=== PATIENT | male | born 1940 | race Caucasian/White ===

== ENCOUNTER 2019-02-25 07:27 | Day surgery (SDC) | payer MEDICARE, OTHER ==
[2019-02-25] VITALS (7 sets, daily range): BP systolic 119–139; BP diastolic 57–68
[~2019-02-25] VITALS: Ht 198.1 cm; Wt 104.7 kg
[2019-02-25] MEDS ORDERED: AMLO5TAB4 PO (08:40)
[2019-02-25] MEDS ORDERED: OMEP20TA23 PO (08:40)
[2019-02-25] MEDS ORDERED: ROSU20TA2 PO (08:40)
[2019-02-25] MEDS ORDERED: NADO40TA PO (08:40)
[2019-02-25] MEDS ORDERED: PIOG45TA5 PO (08:40)
[2019-02-25] MEDS ORDERED: FLUO20CA39 PO (08:40)
[2019-02-25] MEDS ORDERED: METF500T PO (08:40)
[2019-02-25] MEDS ORDERED: QUET25TA PO (08:40)
[2019-02-25] MEDS ORDERED: LEVO75TA PO (08:40)
[2019-02-25] MEDS ORDERED: HYDR-4353 PO (08:40)
[2019-02-25] MEDS ORDERED: LEVO500T2 PO (08:42)
[2019-02-25] MEDS ORDERED: LIDOcaine 1% 30ml preserv. free vial SQ ONE (09:00)
== END 2019-02-25 10:35 | disposition home or self-care (01) ==
LOC: SSTAY O 07:27
PROVIDERS: ATTEND Radiology Diagnostic Radiology
DX: J90 Pleural effusion, not elsewhere classified (principal); I10 Essential (primary) hypertension; E11.9 Type 2 diabetes mellitus without complications; K21.9 Gastro-esophageal reflux disease without esophagitis; E78.5 Hyperlipidemia, unspecified; E03.9 Hypothyroidism, unspecified; Z79.84 Long term (current) use of oral hypoglycemic drugs; Z79.890 Hormone replacement therapy; Z79.891 Long term (current) use of opiate analgesic; Z79.899 Other long term (current) drug therapy; Z88.8 Allergy status to other drugs, medicaments and biological substances; Z91.041 Radiographic dye allergy status
CPT/HCPCS: 32555; 71045; 83615; 84157; C1729; J3490

== ENCOUNTER 2019-07-07 08:39 | Outpatient (CLI) | payer MEDICARE, OTHER ==
[~2019-07-07] VITALS: Ht 200.7 cm; Wt 98.0 kg
[~2019-07-07 08:39] MED LIST: AMLO5TAB4 PO; APIX5TAB3 PO; LEVO75TA PO; METF-436 PO; METF500T PO; METO25TA6 PO; NADO40TA PO; OMEP20TA23 PO; PIOG45TA5 PO; QUET25TA PO; ROSU20TA2 PO
[2019-07-07 09:20] LABS: TOTAL HEMOGLOBIN 10.1 G/dl (14.0-17.9)
[2019-07-07] MEDS ORDERED: albuterol 2.5 MG/3 ML nebule NEB ONE (09:40)
== END 2019-07-07 23:59 | disposition home or self-care (01) ==
LOC: RT 08:39
PROVIDERS: ATTEND Internal Medicine Cardiovascular Disease
DX: J98.4 Other disorders of lung (principal); I10 Essential (primary) hypertension; E11.9 Type 2 diabetes mellitus without complications; Z87.891 Personal history of nicotine dependence; Z79.899 Other long term (current) drug therapy
CPT/HCPCS: 85018; 94060; 94727; 94729; 94760